=== PATIENT | male | born 1995 | race Caucasian/White ===

== ENCOUNTER → 2022-04-05 | Outpatient (CLI) | payer BC ==
--- NOTE | 2022-04-05 11:00 | MM ---
Reason for Exam: Clinical finding. Indicated Problems: Lump or thickening of the left side for 1 Week(s). Patient History: Maternal grandmother had breast cancer. Tissue Density: The breast tissue is almost entirely fat. Findings: Analyzed By CAD. No suspicious mass or worrisome calcifications within either breast. No focal abnormality in the patient's region of palpable marker in the left breast. Overall Assessment: Incomplete: need additional imaging evaluation, BI-RAD 0 Management: Diagnostic Breast Ultrasound of the left breast. A clinical breast exam by your physician is recommended on an annual basis and results should be correlated with mammographic findings. This exam should not preclude additional follow-up of suspicious palpable abnormalities. Results were given to the patient verbally at the time of exam. Electronically signed and approved by: Silvio Ny D.O.
--- NOTE | 2022-04-05 11:24 | USB ---
Reason for Exam: Clinical finding. Patient History: Maternal grandmother had breast cancer. Technique: Method: Targeted. Findings: The axilla of the left breast and the retroareolar of the left breast were scanned. No solid or cystic masses are identified. Minimally thickened skin at the region of the left nipple. Overall Assessment: Benign, BI-RAD 2 Management: Clinical Management in 1 year. A clinical breast exam by your physician is recommended on an annual basis and results should be correlated with mammographic findings. Electronically signed and approved by: Silvio Ny D.O.
== END | disposition home or self-care (01) ==
LOC: RADMAMWWP 10:21
PROVIDERS: ATTEND Family Medicine
DX: N63.0 Unspecified lump in unspecified breast (principal); Z80.3 Family history of malignant neoplasm of breast
CPT/HCPCS: 77066